=== PATIENT | male | born 1960 ===

== ENCOUNTER → 2020-11-12 08:45 | Outpatient (CLI) | payer BC, SELFPAY ==
[2020-11-12 09:35] LABS: COVID19 -Nasal RAPID POSITIVE (Negative)
== END ==
PROVIDERS: Visit Provider Nurse Practitioner Family
DX: U07.1 COVID-19 (principal)
CPT/HCPCS: 87635

== ENCOUNTER → 2024-05-14 12:00 | Outpatient (CLI) | payer BC, SELFPAY ==
[2024-05-14 13:20] LABS: Influenza A - CEPHEID Flu A NEGATIVE (NEGATIVE); Influenza B - CEPHEID Flu B NEGATIVE (NEGATIVE); Respiratory Syncytial Virus Negative (Negative)
[2024-05-14 13:29] LABS: COVID-19 CEPHEID 4-PLEX PCR Negative (Negative)
== END ==
PROVIDERS: Visit Provider Nurse Practitioner Family
DX: R05.1 Acute cough (principal)
CPT/HCPCS: 0241U

== ENCOUNTER → 2024-05-14 12:10 | Outpatient (CLI) | payer BC, SELFPAY ==
--- NOTE | 2024-05-14 12:13 | DI.RAD.S_ITS ---
PROCEDURE: XR CHEST 2V INDICATIONS: Cough TECHNIQUE: 2 views of the chest were acquired. COMPARISON: None. FINDINGS: Mild bilateral perihilar and lower lobe peribronchial thickening with mild patchy lower lobe opacities some of which may be related expiratory result although bronchitis, bronchopneumonia, viral infection, asthma or other process should be considered. No pneumothorax, no pleural effusion, and cardiopericardial silhouette and pulmonary vasculature within normal limits. Mild degenerative changes of the thoracic spine and shoulders. IMPRESSION: Mild peribronchial thickening and patchy opacities as discussed above. Follow-up suggested. If symptoms persist or worsen, CT chest could be performed Dictated by: Josiah Renner M.D. on 05/14/2024 at 14:44 Approved by: Josiah Renner M.D. on 05/14/2024 at 14:45
== END ==
PROVIDERS: PCP Family Medicine; Referring Provider Nurse Practitioner Family; Visit Provider Nurse Practitioner Family
DX: R05.1 Acute cough (principal); R91.8 Other nonspecific abnormal finding of lung field
CPT/HCPCS: 0241U; 71046